=== PATIENT | male | born 1980 | race Native Hawaiian/Other Pacific Islander ===

== ENCOUNTER 2017-06-15 16:39 | Emergency (ER) | payer OTHER ==
[~2017-06-15] VITALS: Ht 182.9 cm; Wt 111.8 kg
[2017-06-15 17:08] VITALS: BP 163/127
--- NOTE | 2017-06-15 17:28 | NUR ---
PATIENT PRESENTS TO ED WITH C/O POUNDING HEADACHE POSTERIOR LEFT SIDE X TODAY---- DENIES INJURY/TRAUMA, DENIES DIZZINESS, NASAL CONGESTION AND COUGH X 1 WK, NAUSEA NOW. FULL CLEAR SPEECH,AMBULATORY WITH STEADY GAIT, NO FACIAL ASYMMETRY PT STATES HEADACHE 8/10 AT THIS TIME. ELEVATED BP NOTED. ER MD MADE AWARE OF PT STATUS.
--- NOTE | 2017-06-15 17:45 | NUR ---
Patient being evaluated by physician at bedside.
[2017-06-15] MEDS ORDERED: cloNIDine 0.1 MG TAB PO ONE (18:20)
[2017-06-15] MEDS ORDERED: LISINOPRIL 10 MG TAB ONE (18:32)
--- NOTE | 2017-06-15 19:08 | NUR ---
REPORT GIVEN TO CHRIS RN FOR CONTINUE OF CARE.
[2017-06-15 19:13] LABS: HEMOGLOBIN 16.9 g/dL (12.0-18.0); MEAN CORPUSCULAR HEMOGLOBIN 28 pg (27-31); MEAN CORPUSCULAR HGB CONC 33 g/dL (33-37); MEAN CORPUSCULAR VOLUME 85 fL (80-94); PLATELET COUNT (AUTO) 284 K/uL (140-450); RED BLOOD CELL COUNT(AUTO) 5.98 MIL/uL (4.20-6.10); WHITE BLOOD COUNT (AUTO) 5.7 K/uL (4.8-10.8)
[2017-06-15 19:29] LABS: PROTHROMBIN TIME 10.3 secs (10.8-13.4)
[2017-06-15 19:36] LABS: LYMPHOCYTES % (MANUAL) 37 % (20-46)
[2017-06-15 19:37] LABS: EOSINOPHILS % (MANUAL) 1 % (0-4); MONOCYTES % (MANUAL) 16 % (5-12)
[2017-06-15 19:40] LABS: POTASSIUM 3.6 mmol/L (3.5-5.1)
[2017-06-15 19:41] LABS: ALBUMIN 4.4 g/dL (3.4-5.0); ANION GAP 12.9 (8-16); CARBON DIOXIDE 28.7 mmol/L (21-32); CREATININE 1.2 mg/dL (0.7-1.3); TOTAL BILIRUBIN 0.3 mg/dL (0.0-1.0)
--- NOTE | 2017-06-15 19:55 | NUR ---
CRITICAL LAB TROPONIN 0.082, RAJ DICKSON MADE AWARE, OKAY TO GO HOME Addendum: 06/15/17 at 2207 by [facility] CRITICAL LAB TROPONIN 0.084, RAJ DICKSON MADE AWARE, OKAY TO GO HOME
--- NOTE | 2017-06-15 19:56 | NUR ---
Patient discharged with v/s stable. Written and verbal after care instructions given and explained. Patient alert, oriented and verbalized understanding of instructions. Ambulatory with steady gait. All questions addressed prior to discharge. ID band removed. Patient advised to follow up with PMD. Rx of ZPACK, LISINOPRIL 40MG given. Patient educated on indication of medication including possible reaction and side effects. Opportunity to ask questions provided and answered.
[2017-06-15 19:57] VITALS: BP 144/91
[2017-06-16] MEDS ORDERED: LISINOPRIL 20 MG TAB PO SCH (09:00)
== END 2017-06-15 19:56 | disposition home or self-care (01) ==
LOC: MED 16:39
DX: I25.10 Atherosclerotic heart disease of native coronary artery without angina pectoris (principal); I10 Essential (primary) hypertension; R79.89 Other specified abnormal findings of blood chemistry
CPT/HCPCS: 36415; 71045; 80053; 83880; 84484; 85025; 85610; 85730; 93005; 99285

== ENCOUNTER 2017-10-25 19:09 | Emergency (ER) | payer OTHER ==
[~2017-10-25] VITALS: Ht 180.3 cm; Wt 97.5 kg
[2017-10-25 19:16] VITALS: BP 145/100
--- NOTE | 2017-10-25 19:16 | NUR ---
TO BED # 7 AMBULATORY, REPORT GIVEN TO AIDEN JASSO
--- NOTE | 2017-10-25 19:30 | NUR ---
37/M CAME IN ED, C/O 01/20 SORE THROAT, X3 DAYS, EXACERBATED BY SWALLOWING. PT REPORTS BEING UNABLE TO EAT ALL DAY DUE TO PAIN. PT REPORTS CHILLS. PT DENIES ANY FEVER, CP, SOB, OR COUGH AT THIS TIME, PT DENIES N/V/D; SKIN IS INTACT, PINK/WARM/DRY; AAOX4, PERRL, WITH EVEN AND STEADY GAIT; LUNGS CLEAR BL, BREATHING UNLABORED; HR EVEN AND REGULAR, BL PERIPHERAL PULSES PRESENT; BS ACTIVE X4, NO TENDERNESS TO PALPATION; VSS; PATIENT POSITIONED FOR COMFORT; HOB ELEVATED; BEDRAILS UP X2; BED DOWN.
--- NOTE | 2017-10-25 19:53 | NUR ---
Dr. Anand evaluating patient at bedside.
[2017-10-25] MEDS ORDERED: KETOROLAC 60 MG/2 ML VIAL IM ONE (20:00)
[2017-10-25] MEDS ORDERED: PENICILLIN G BENZATHINE L-A 1.2 MU/2 ML SYR IM ONE (20:00)
[2017-10-25 20:31] VITALS: BP 154/71
--- NOTE | 2017-10-25 20:31 | NUR ---
DPatient discharged with v/s stable. Written and verbal after care instructions given and explained. Patient alert, oriented and verbalized understanding of instructions. Ambulatory with steady gait. All questions addressed prior to discharge. ID band removed. Patient advised to follow up with PMD. Rx of MOTRIN, PREDNISONE, NORCO given. Patient educated on indication of medication including possible reaction and side effects. Opportunity to ask questions provided and answered.
== END 2017-10-25 20:31 | disposition home or self-care (01) ==
LOC: MED 19:09
DX: J02.9 Acute pharyngitis, unspecified (principal); I10 Essential (primary) hypertension
CPT/HCPCS: 96372; 99284; J0561; J1885

== ENCOUNTER 2020-08-06 12:04 | Emergency (ER) | payer OTHER ==
[~2020-08-06] VITALS: Ht 180.3 cm; Wt 108.9 kg
[2020-08-06 12:17] VITALS: BP 191/103
--- NOTE | 2020-08-06 12:45 | NUR ---
Patient being evaluated by TRINO RODGERS AT TRIAGE ROOM..
--- NOTE | 2020-08-06 12:46 | NUR ---
40/M BIB SELF C/O LEFT ARM & LEFT LEG NUMBNESS X 15 MINS AGO. BP 191/103 AT THIS TIME. DENIES NARANJO OR DIZZINESS AT THIS TIME.PMH: HTN.DENIES N/V/D; SKIN IS PINK/WARM/DRY; AAOX4 WITH EVEN AND STEADY GAIT; LUNGS CLEAR BL; HR EVEN AND REGULAR; PT DENIES ANY FEVER, CP, SOB, OR COUGH AT THIS TIME; PATIENT STATES PAIN OF 0/10 AT THIS TIME.
[2020-08-06] MEDS ORDERED: LISI10TA30 PO (12:55)
--- NOTE | 2020-08-06 13:19 | NUR ---
Patient discharged with v/s stable. Written and verbal after care instructions given and explained. Patient alert, oriented and verbalized understanding of instructions. Ambulatory with steady gait. All questions addressed prior to discharge. ID band removed. Patient advised to follow up with PMD. Rx of LISINOPRIL given. Patient educated on indication of medication including possible reaction and side effects. Opportunity to ask questions provided and answered.
[2020-08-06 13:20] VITALS: BP 191/103
== END 2020-08-06 13:19 | disposition home or self-care (01) ==
LOC: MED 12:04
DX: I10 Essential (primary) hypertension (principal); F12.10 Cannabis abuse, uncomplicated; F17.210 Nicotine dependence, cigarettes, uncomplicated
CPT/HCPCS: 93005; 99283

== ENCOUNTER 2020-10-17 05:58 | Emergency (ER) | payer OTHER ==
[~2020-10-17] VITALS: Ht 180.3 cm; Wt 101.6 kg
[~2020-10-17 05:58] MED LIST: LISI10TA30 PO
[2020-10-17 06:10] VITALS: BP 150/90
[2020-10-17 07:21] LABS: EOSINOPHILS # (AUTO) 0.2 K/uL (0-0.4); HEMOGLOBIN 9.3 g/dL (12.0-18.0); LYMPHOCYTES # (AUTO) 0.8 K/uL (2.0-11.5); MONOCYTES # (AUTO) 0.4 K/uL (0.8-1.0)
[2020-10-17 07:27] LABS: MEAN CORPUSCULAR HEMOGLOBIN 20 pg (27-31); MEAN CORPUSCULAR HGB CONC 30 g/dL (33-37)
[2020-10-17 07:28] LABS: WHITE BLOOD COUNT (AUTO) 5.4 K/uL (4.8-10.8)
[2020-10-17 07:29] LABS: HEMATOCRIT 30.9 % (36-52); PLATELET COUNT (AUTO) 446 K/uL (140-450); RED BLOOD CELL COUNT(AUTO) 4.68 MIL/uL (4.20-6.10); RED CELL DISTRIBUTION WIDTH 21.9 % (11.6-13.7)
[2020-10-17 07:30] LABS: BASOPHILS % (AUTO) 0.8 % (0.0-2.0); EOSINOPHILS % (AUTO) 4.3 % (0.0-4.0); LYMPHOCYTES % (AUTO) 15.2 % (20.5-51.1); MONOCYTES % (AUTO) 7.7 % (1.7-9.3); NEUTROPHILS # (AUTO) 3.9 K/uL (1.8-7.7)
[2020-10-17 07:33] LABS: ALBUMIN 4.1 g/dL (3.4-5.0); ANION GAP 10.6 (8-16); CARBON DIOXIDE 27.8 mmol/L (21-32); CREATININE 1.1 mg/dL (0.6-1.3); POTASSIUM 3.4 mmol/L (3.5-5.1); TOTAL BILIRUBIN 0.5 mg/dL (0.0-1.0)
[2020-10-17 08:06] VITALS: BP 150/90
== END 2020-10-17 08:06 | disposition home or self-care (01) ==
LOC: MED 05:58
DX: K29.70 Gastritis, unspecified, without bleeding (principal); K59.00 Constipation, unspecified; I10 Essential (primary) hypertension
CPT/HCPCS: 36415; 80053; 83690; 85025; 99283